=== PATIENT | female | born 1960 | race Two or more races ===

== ENCOUNTER → 2016-07-14 | Outpatient (CLI) | payer MEDICARE, MEDICAID ==
[~2016-07-14] MED LIST: ACYCLOVIR400 MG ORAL; ATENOLOL50 MG ORAL; CALCIUM500 M3 PO; CATAPRES0.1 MG ORAL; CELEBREX200 MG ORAL; CIPRO500 MG PO; CRESTOR10 M1 ORAL; DIOVAN160 MG ORAL; FAMOTIDINE40 MG ORAL; FOLIC ACID1 MG ORAL; FUROSEMIDE40 MG ORAL; LORATADINE10 M1 PO; MACRODANTIN50 MG ORAL; PREDNISONE20 M1 PO; RENAGEL400 MG ORAL; ZOLOFT25 MG ORAL
--- NOTE | 2016-07-14 15:05 | Diagnostic Imaging Report ---
Indications: Chest pain Technique: Single day single isotope protocol utilized. Initially, resting images obtained using IV administration 9.8 millicuries 99M technetium Myoview. Subsequently, patient underwent Dobutamine stress testing. See cardiology report for details. During dobutamine infusion, IV administration by 9.9 mCi 99 M technetium Myoview. SPECT and planar images obtained. SPECT images gated to 8 phases of the cardiac cycle were also obtained, and reformatted into cine images for evaluation of ejection fraction. Comparison: None Findings: Patient achieved a peak heart rate of 138 beats per minute, just short of the target heart rate of 139. Per cardiology report, patient experienced no symptoms. Per cardiology report, resting EKG demonstrates normal sinus rhythm. No significant ST-T wave changes demonstrated during infusion. Imaging demonstrates questionable small perfusion defect involving the apex and anteroseptal wall. This is unchanged on the resting images or, anything, slightly more prominent no reversible perfusion defects are demonstrated. Normal cardiac chamber size.. Calculated post stress ejection fraction 75% Impression: Nonischemic clinical response to pharmacologic stress, per cardiology report Nonischemic electrocardiographic response to pharmacologic stress, per cardiology report Equivocal small fixed perfusion defect at the apex extending into the anteroseptal wall. Suspect artifactual, could represent a small infarct if real. Negative for ischemia, at level of stress achieved Calculated post stress ejection fraction 75%
== END | disposition home or self-care (01) ==
LOC: CAR 10:28
DX: I51.7 Cardiomegaly (principal)
CPT/HCPCS: 78452; 93017; A4641